=== PATIENT | male | born 1965 | race Hispanic/Latino ===

== ENCOUNTER 2017-10-14 01:57 | Inpatient (IN) | payer SELFPAY ==
[2017-10-14] MEDS ORDERED: Norepinephrine 8 MG/0.9% NS 250 ML ONE (02:03)
[2017-10-14 02:28] LABS: CO2 Tension 41.3 mmHg (35.0-45.0); O2 Tension (PaO2) 155.6 mmHg (80.0-100.0); pH, Arterial 6.96 (7.35-7.45)
[2017-10-14 02:29] LABS: Actual Bicarbonate (HCO3a) 9.1 mEq/L (22-28); Base Excess (BEa) -21.2 mEq/L (-2.0 to +3.0); Hematocrit-ABG 17.4 % (42.0-52.0); Hemoglobin (Hb) 7.1 g/dL (14.0-18.0)
[2017-10-14 02:30] LABS: ALV-art Gradient 149.275 (0-20); Analyzer IN Cardio ER; Calcium, Ionized 0.8 mmol/L (1.12-1.30); Puncture Site RRA
[2017-10-14] MEDS ORDERED: Pantoprazole 40 MG VIAL ONE (02:35)
[2017-10-14 02:45] LABS: Hemoglobin 7.5 g/dL (14.0-18.0); Mean Corpuscular Hemoglobin 33.1 pg (27.0-31.0); Mean Platelet Volume 10.3 fL (7.4-10.4); Platelet Count 15 thou/uL (130-400); RBC Distribution Width 16.8 % (11.5-14.5); Red Blood Cell (RBC) Count 2.27 mill/uL (4.70-6.10); Reflex for Review?? NO; White Blood Cell (WBC) Count 3.8 thou/uL (4.8-10.8)
[2017-10-14] MEDS ORDERED: Octreotide Acetate 1,250 MCG in Sodium Chloride 0.9% 250 ML 250 ML IVPB SCH (02:45)
[2017-10-14 02:46] LABS: Prothrombin Time 54.4 SEC (12.0-14.7)
[2017-10-14 02:47] LABS: PTT 106.9 SEC (22.9-36.1)
[2017-10-14 02:53] LABS: ALT (SGPT) 232 U/L (8-55); AST (SGOT) 763 U/L (5-34); Albumin 1.3 g/dL (3.5-5.0); Alkaline Phosphatase 59 U/L (40-150); BUN (Urea Nitrogen) 31 mg/dL (8.4-25.7); Bilirubin, Total 2.8 mg/dL (0.2-1.2); Calc. Creatinine Clearance 0 mL/min (70-130); Chloride 110 mmol/L (98-107); Estimated GFR-MDRD 27; Globulin 1.2 g/dL (2.4-3.5); Glucose 66 mg/dL (70-105); Potassium 4.5 mmol/L (3.5-5.1); Protein, Total 2.5 g/dL (6.0-8.3); Sodium 154 mmol/L (136-145)
[2017-10-14 02:59] LABS: INR-International Normal Ratio 5.7
[2017-10-14] MEDS ORDERED: Phytonadione 10 MG/ML AMP SLOW IVP SCH (03:00)
[2017-10-14] MEDS ORDERED: Human Prothrombin Complx(PCC) 1,000 UNIT in Admixture Fee 1 EACH IV SCH (03:00)
[2017-10-14 03:06] LABS: Actual Bicarbonate (HCO3a) 11.1 mEq/L (22-28); CO2 Tension 39.9 mmHg (35.0-45.0); O2 Tension (PaO2) 131.1 mmHg (80.0-100.0); pH, Arterial 7.06 (7.35-7.45)
[2017-10-14 03:07] LABS: Base Excess (BEa) -17.8 mEq/L (-2.0 to +3.0); Calcium, Ionized 0.5 mmol/L (1.12-1.30); Hemoglobin (Hb) 6.6 g/dL (14.0-18.0)
[2017-10-14 03:08] LABS: ALV-art Gradient 175.525 (0-20); Analyzer IN Cardio ER; Puncture Site RRA
[2017-10-14] MEDS ORDERED: EPINEPHrine 1 MG/10 ML Abboject SYRINGE ONE (03:12)
[2017-10-14 03:20] LABS: Band 6 % (5-11); Lymphocytes 32 % (21-51); MDiff Complete? YES; Macrocytosis MODERATE=16-30 cells (100X) (0-5/hpf); Monocytes 1 % (0-10); Neutrophil 61 % (42-75); PLT Morphology Comment Appears Decreased
[2017-10-14 03:21] LABS: CKMB 7.6 ng/mL (0-6.6); Carbon Dioxide Less than 8 mmol/L (22-29); Troponin I 0.343 ng/mL (< 0.028)
[2017-10-14] MEDS ORDERED: Tranexamic Acid 1,000 MG in Sodium Chloride 0.9% 250 ML 250 ML IVPB SCH (03:30)
[2017-10-14] MEDS ORDERED: Vecuronium 10 MG VIAL IVP PRN (03:44)
[2017-10-14] MEDS ORDERED: Sodium Bicarbonate 70 MEQ in Sodium Chloride 0.45% 1,000 ML IV ONE ×2 (03:45→16:45)
[2017-10-14] MEDS ORDERED: Norepinephrine 8 MG/0.9% NS 250 ML IVPB SCH (03:45)
[2017-10-14] MEDS ORDERED: Sodium Bicarbonate 2.5 MEQ/5 ML VIAL ONE (03:48)
[2017-10-14] MEDS ORDERED: Sodium Bicarb 50 MEQ/50 ML Abboject 8.4% SYRINGE ONE ×3 (03:48→14:48)
[2017-10-14] MEDS ORDERED: Calcium Chloride 1 GM/10 ML Abboject SYRINGE ONE ×2 (03:54→14:48)
[2017-10-14 04:32] LABS: Troponin I 0.292 ng/mL (< 0.028)
[2017-10-14 04:44] LABS: Base Excess (BEa) -11.8 mEq/L (-2.0 to +3.0); CO2 Tension 54.6 mmHg (35.0-45.0); Hemoglobin (Hb) 7.8 g/dL (14.0-18.0); O2 Tension (PaO2) 137.3 mmHg (80.0-100.0); pH, Arterial 7.11 (7.35-7.45)
[2017-10-14 04:45] LABS: Analyzer IN Cardio ER; Calcium, Ionized 0.9 mmol/L (1.12-1.30); Puncture Site ALINE
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
[2017-10-14 06:02] LABS: INR-International Normal Ratio 1.6; Prothrombin Time 19.3 SEC (12.0-14.7)
[2017-10-14 06:13] LABS: ALT (SGPT) 679 U/L (8-55); AST (SGOT) 2297 U/L (5-34); Albumin 3.4 g/dL (3.5-5.0); Alkaline Phosphatase 80 U/L (40-150); Anion Gap 48 mmol/L (10-20); BUN (Urea Nitrogen) 29 mg/dL (8.4-25.7); Bilirubin, Total 3.7 mg/dL (0.2-1.2); Calc. Creatinine Clearance 0 mL/min (70-130); Calcium 9.8 mg/dL (7.8-10.44); Carbon Dioxide 11 mmol/L (22-29); Chloride 102 mmol/L (98-107); Estimated GFR-MDRD 29; Globulin 2.7 g/dL (2.4-3.5); Glucose 105 mg/dL (70-105); Potassium 4.8 mmol/L (3.5-5.1); Protein, Total 6.1 g/dL (6.0-8.3); Sodium 156 mmol/L (136-145)
[2017-10-14 06:14] LABS: CO2 Tension 45.7 mmHg (35.0-45.0); O2 Tension (PaO2) 83.7 mmHg (80.0-100.0)
[2017-10-14 06:15] LABS: Actual Bicarbonate (HCO3a) 13.9 mEq/L (22-28); Base Excess (BEa) -15.1 mEq/L (-2.0 to +3.0); Hematocrit-ABG 31.1 % (42.0-52.0); Hemoglobin (Hb) 11.4 g/dL (14.0-18.0)
[2017-10-14 06:15] LABS: Band 4 % (5-11); Hemoglobin 11.4 g/dL (14.0-18.0); Lymphocytes 74 % (21-51); MDiff Complete? YES; Mean Corpuscular HGB CONC 33.7 g/dL (32.0-36.0); Mean Corpuscular Hemoglobin 31.7 pg (27.0-31.0); Mean Corpuscular Volume 94.1 fl (80.0-94.0); Mean Platelet Volume 7.4 fL (7.4-10.4); Neutrophil 22 % (42-75); Nucleated RBC 2 % (0); PLT Morphology Comment Appears Decreased; Platelet Count 91 thou/uL (130-400); RBC Distribution Width 14.9 % (11.5-14.5); Red Blood Cell (RBC) Count 3.59 mill/uL (4.70-6.10); White Blood Cell (WBC) Count 1.1 thou/uL (4.8-10.8)
[2017-10-14 06:16] LABS: ALV-art Gradient 572.175 (0-20); Analyzer IN Cardio ER; Calcium, Ionized 0.7 mmol/L (1.12-1.30); Puncture Site ART LINE
[2017-10-14 06:17] LABS: CKMB 81.8 ng/mL (0-6.6); Troponin I 0.598 ng/mL (< 0.028)
[2017-10-14 06:19] LABS: Bilirubin Negative (Negative); Blood, Urine Large (Negative); Clarity CLOUDY (Clear); Glucose, Urine (Dipstick) Negative (Negative); Leukocyte Negative (Negative); Nitrite Negative (Negative); Protein, Urine (Dipstick) 300 mg/dL (Neg-Trace); Specific Gravity, Urine 1.014 (1.002-1.036); Urobilinogen 0.2 mg/dL (0.2-1.0); pH, Urine 6.5 (5.0-9.0)
[2017-10-14 06:22] LABS: Bacteria/HPF Rare-Few HPF (None Seen); RBC/HPF 21-50 HPF (0-3)
[2017-10-14 06:23] LABS: Pathc Cast-AUWi Flag 3.19 (0-2.49)
[2017-10-14] MEDS: Pantoprazole 80 MG, Admixture Fee 1 EACH in Sodium Chloride 0.9% 100 ML IVP SCH ×3 (06:30→20:05)
[2017-10-14 06:34] LABS: Hyaline Casts/LPF 0-3 HYALINE CAST LPF (0-3 Hyaline); Other Casts/LPF None Seen LPF (0-3 Hyaline); Oval Fat Bodies/HPF None Seen HPF (None Seen); Sperm/HPF None Seen HPF (None Seen); Transitional Epithelial NONE SEEN HPF (0-3); Trichomonas/HPF None Seen HPF (None Seen); Yeast-All Forms None Seen HPF (None Seen)
[2017-10-14] MEDS: Vasopressin 40 UNIT, Admixture Fee 1 EACH in Sodium Chloride 0.9% 100 ML IV PRN ×3 (07:00→17:07)
[2017-10-14] MEDS ORDERED: CCU Electrolyte Replacement 1 EACH IVPB ONE (07:18)
[2017-10-14] MEDS ORDERED: Ventilator Sedation Protocol 1 EACH FS SCH (07:18)
[2017-10-14] MEDS ORDERED: Lorazepam 2 MG/ML VIAL SLOW IVP PRN (07:34)
[2017-10-14] MEDS ORDERED: DISCONTINUE PREVIOUS NARCOTIC PAIN MEDICATIONS AND BENZODIAZEPINES FS SCH (07:34)
[2017-10-14] MEDS ORDERED: Morphine 4 MG/ML VIAL SLOW IVP PRN (07:34)
[2017-10-14] MEDS ORDERED: Propofol 1,000 MG/100 ML VIAL IV PRN (07:34)
[2017-10-14] MEDS ORDERED: Propofol BOLUS 1,000 MG/100 ML VIAL IV PRN (07:34)
[2017-10-14] MEDS ORDERED: fentaNYL Citrate/PF 2,000 MCG in Sodium Chloride 0.9% 60 ML IV SCH (07:34)
[2017-10-14] MEDS ORDERED: Fentanyl BOLUS 250 ML IVPB PRN (07:34)
[2017-10-14] MEDS ORDERED: Potassium Phosphate 15 MMOL in Sodium Chloride 0.9% 250 ML 250 ML IV PRN (07:35)
[2017-10-14] MEDS ORDERED: Magnesium 2 GM/NS 0.9% 100 ML 2 GM in Premix Bag 1 BAG IVPB PRN (07:35)
[2017-10-14] MEDS ORDERED: Potassium Chloride 40 MEQ in Sodium Chloride 0.9% 250 ML 250 ML IVPB PRN (07:35)
[2017-10-14] MEDS ORDERED: Potassium Phosphate 12 MMOL in Sodium Chloride 0.9% 250 ML 250 ML IV PRN (07:35)
[2017-10-14] MEDS ORDERED: Magnesium Oxide 400 MG TAB PO PRN ×2 (07:35)
[2017-10-14] MEDS ORDERED: Potassium Phosphate 9 MMOL in Sodium Chloride 0.9% 100 ML IVPB PRN (07:35)
[2017-10-14] MEDS ORDERED: CCU ELECTROLYTE REPLACEMENT PROTOCOL FS PRN (07:35)
[2017-10-14] MEDS ORDERED: Potassium Chloride 20 MEQ TAB PO PRN (07:35)
[2017-10-14] MEDS ORDERED: Potassium Chloride 40 MEQ in Premix Bag 1 BAG IVPB PRN (07:35)
--- NOTE | 2017-10-14 07:39 | CON ---
DATE OF CONSULTATION: 10/14/2017. REQUESTING PHYSICIAN: Dr. Sahu. REASON FOR CONSULTATION: Upper GI bleeding with hemorrhagic shock. HISTORY OF PRESENT ILLNESS: Mr. Anderson Skelton is a 52-year-old man with an unknown past medical history who was transferred to our emergency department in hemorrhagic shock. History is very limited. Evidently, he was brought to the ER by friends after starting to vomit a copious amount of bright red blood tonight. Upon arrival, he is in profound shock with hypotension, coagulopathy, encephalopathy, evidently found to have elevated cardiac enzymes prior to transfer as well. He has an orogastric tube, which is putting out copious amounts of bright red blood. It is unclear whether he had any symptoms preceding this event. It is unclear whether he has any prior history of gastrointestinal or liver illness. It is unknown what medications he may have been on as an outpatient. He has received multiple blood products already. He has evidently received 3 units of platelets and 6 units of packed RBCs as well as FFP. A central line has just been placed. He is now on 2 pressors. He is still in the trauma bay of the emergency department and the plans are to move him to the Intensive Care Unit. REVIEW OF SYSTEMS: Unable to obtain due to the patient's mental status. PAST MEDICAL HISTORY: Unknown. ALLERGIES: Unknown. OUTPATIENT MEDICATIONS: Unknown. FAMILY HISTORY: Unable to obtain. SOCIAL HISTORY: Unable to obtain. PHYSICAL EXAMINATION: VITAL SIGNS: Blood pressure 95/35, pulse 173, 97% oxygen saturation on ventilator. GENERAL: Critically ill 52-year-old man, endotracheally intubated. SKIN: No jaundice, no rash visible or palpable. EYES: No scleral icterus. ENT: The patient is endotracheally intubated. He has an orogastric tube putting out a large amount of bright red blood. HEART: Irregular, tachycardia. LUNGS: Bibasilar crackles and vent sounds. ABDOMEN: Nondistended. Bowel sounds are hypoactive. The patient does not withdraw to palpation, pain stimulus. EXTREMITIES: No peripheral edema. LABORATORY STUDIES: WBC 3.8, hemoglobin 7.5, platelets 15. Sodium 154, potassium 4.5, carbon dioxide less than 8, BUN 31, creatinine 2.49, glucose 66, calcium 6.0. Total bilirubin 2.8, alkaline phosphatase 59, AST 763, ALT 232, troponin 0.343, albumin 1.3. INR 5.7. Arterial pH 7.06, up from 6.96 on initial presentation, pO2 131, pCO2 39.9. ABG hemoglobin which is actually the most recent hemoglobin was down to 6.6. ASSESSMENT AND PLAN: 1. Upper gastrointestinal bleeding. 2. Hemorrhagic shock, severe. 3. Coagulopathy. 4. Elevated liver function tests, possibly secondary to shock liver. The patient is critically ill. Prognosis seems quite grim. He is being resuscitated maximally at this time, continues to be hypotensive. He is receiving more blood products. I have recommended IV PPI as well as octreotide. The patient is clinically unstable, but on the other hand, active hemorrhage continues and urgent endoscopic investigation is warranted despite the risks of the procedure. We will proceed with urgent upper endoscopy at this time. Further recommendations following EGD. MTDD
--- NOTE | 2017-10-14 07:59 | OP ---
DATE OF PROCEDURE: 10/14/2017 SURGEON: Lauri Mclean M.D. BUTTON [employer]ATION WORKER SURGEON: None. PROCEDURE PERFORMED: Esophagogastroduodenoscopy with control of hemorrhage. INDICATION: Upper gastrointestinal bleeding and hemorrhagic shock. MEDICATIONS: See ER record. FINDINGS: After consultation with Dr. Sahu as well as Dr. Butler, given the emergent nature of the situation and the absence of any family members with the patient, it was agreed to perform the endoscopic procedure emergently. We were unable to obtain informed consent, but we all agreed on the necessity of the emergent procedure. Pre-endoscopic cardiopulmonary examination was performed. The procedure was performed in the trauma bay of the emergency department. DESCRIPTION OF PROCEDURE: Timeout was performed before the procedure started. A bite block was put into place. The patient's nasogastric tube was removed. A Pentax adult therapeutic upper endoscope was placed into the oropharynx and advanced into the esophagus under direct visualization. There was a large amount of bright red fresh blood, filling the esophagus and the gastric fundus and coating much of the gastric mucosa as well as the examined portions of the duodenum. On careful examination of the esophagus, the patient has a couple of trunks of very large esophageal varices; however, there does not appear to be any bleeding from the esophageal varices, there are no stigmata of recent bleeding from the esophageal varices. The endoscope was advanced into the stomach. Forward and retroflexed views were obtained. Due to the large amount of fresh blood and clots within the gastric fundus, I was unable to completely clear the gastric fundus. The gastric antrum and body appeared normal. The endoscope was passed through the pylorus and into the first and second portions of the duodenum and aside from fresh blood throughout the lumen, the mucosa in this area appeared normal. I then turned my attention to a careful exam of the GE junction area. On retroflexed view of the GE junction area, I was unable to see any gastric varices, though again note, I was unable to completely clear the gastric fundus. However, I was able to get a good examination of the GE junction area. The patient appears to have a large ulcer at the GE junction. This does not have a typical appearance of Bina-Juares tear, but rather of a gastric ulcer. There is active hemorrhage from two separate visible vessels within this ulcer base. One of those visible vessels was bleeding quite briskly. It was decided to proceed with cautery of this area. I used a 10- [place] Islander bipolar probe to cauterize the ulcer bed and extensive amount of cautery had to be applied in order to achieve hemostasis. Additionally, I did inject 3 mL of submucosal epinephrine around the ulcer bed. With epinephrine injection and cautery of the ulcer base, hemostasis was finally achieved. At this point, the upper endoscope was completely withdrawn and the patient allowed to recover. The patient tolerated the procedure well. There were no immediate post-procedure complications. He is being transferred to an ICU bed. IMPRESSION: 1. Gastric ulcer near the gastroesophageal junction, with active hemorrhage from visible vessel, now status post successful hemostasis with 10-Sol[place] Islander bipolar cautery and submucosal epinephrine injection. 2. Large distal esophageal varices, but with no stigmata of hemorrhage. No therapy was applied to the varices on this examination. 3. Large amount of fresh blood and clots filling the gastric fundus, unable to clear the gastric fundus completely for examination. 4. Otherwise, normal esophagogastroduodenoscopy. RECOMMENDATIONS: 1. Continue maximal supportive care as you are doing. Recommend correction of his coagulopathy and thrombocytopenia. 2. Monitor H&H, transfuse as needed. 3. Protonix IV drip needs to be continued. 4. The patient's prognosis remains grim. GI will continue to follow. ELIZA
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
[2017-10-14 08:37] LABS: Actual Bicarbonate (HCO3a) 13.8 mEq/L (22-28); CO2 Tension 34.3 mmHg (35.0-45.0); O2 Tension (PaO2) 43.2 mmHg (80.0-100.0); pH, Arterial 7.22 (7.35-7.45)
[2017-10-14 08:38] LABS: Base Excess (BEa) -12.8 mEq/L (-2.0 to +3.0); Calcium, Ionized 0.8 mmol/L (1.12-1.30); Puncture Site ALINE
[2017-10-14 08:39] LABS: ALV-art Gradient 621.925 (0-20)
[2017-10-14] MEDS ORDERED: Norepinephrine 16 MG in Dextrose 5% in Water 234 ML IVPB PRN (09:10)
[2017-10-14] MEDS ORDERED: Albumin 25% 25 GM/100 ML BOT IVPB STA (09:26)
--- NOTE | 2017-10-14 09:50 | PRG ---
DATE OF SERVICE: 10/14/2017 Additional one-hour critical care time. SUBJECTIVE: The patient has continued to do poorly. He is requiring vasopressin and Levophed. Now, he is experiencing refractory hypoxemia. LABORATORY DATA: The latest blood gas from about 30 minutes ago shows a pH of 7.22, pCO2 of 34, pO2 of 43, and his O2 sat is about 88% on the monitor. White blood cell count is 1.1, hematocrit 33.8, p latelet count 91. Last INR is 1.6. Sodium 156, potassium 4.8, chloride 102, CO2 of 11, BUN 29, crea tinine 2.3, glucose 105, AST 2297, ALT 679. ASSESSMENT: 1. Multiple organ failure including respiratory failure and renal failure. 2. Hemorrhagic shock from gastrointestinal bleeding - he had a visible vessel at the gastroenterolog y junction that Dr. Mclean was able to inject and cauterize. 3. Hypotension. PLAN: 1. Check x-ray. 2. Continue vasopressors. 3. Continue bicarbonate and IV fluids. 4. Continue serial ABGs. 5. I have adjusted his ventilator settings to bilevel.
[2017-10-14 09:51] LABS: Mean Corpuscular HGB CONC 34.1 g/dL (32.0-36.0); Mean Corpuscular Hemoglobin 31.3 pg (27.0-31.0); Mean Corpuscular Volume 91.6 fl (80.0-94.0); Mean Platelet Volume 7.2 fL (7.4-10.4); Platelet Count 76 thou/uL (130-400); RBC Distribution Width 14.7 % (11.5-14.5); Red Blood Cell (RBC) Count 3.85 mill/uL (4.70-6.10); White Blood Cell (WBC) Count 0.6 thou/uL (4.8-10.8)
--- NOTE | 2017-10-14 09:56 | RAD ---
CHEST 1 VIEW: Date: 10/14/17 HISTORY: Altered mental status, symptomatic bradycardia and arrest, with CPR performed. COMPARISON: Earlier exam of the same day. FINDINGS: Endotracheal and NG tubes are in satisfactory position. Heart size appears slightly enlarged, but thi s may be related to supine technique. No rib fractures are identified. Pad overlies the right chest a nd obscures detail. IMPRESSION: 1. Endotracheal and NG tubes in satisfactory position. 2. Subsegmental atelectatic change in the lung bases. POS: [facility]
[2017-10-14 10:00] LABS: ALT (SGPT) 1194 U/L (8-55); Albumin 3.1 g/dL (3.5-5.0); Alkaline Phosphatase 77 U/L (40-150); Anion Gap 41 mmol/L (10-20); BUN (Urea Nitrogen) 29 mg/dL (8.4-25.7); Calc. Creatinine Clearance 41 mL/min (70-130); Calcium 8.6 mg/dL (7.8-10.44); Carbon Dioxide 14 mmol/L (22-29); Chloride 104 mmol/L (98-107); Estimated GFR-MDRD 27; Globulin 2.2 g/dL (2.4-3.5); Potassium 4.3 mmol/L (3.5-5.1); Protein, Total 5.3 g/dL (6.0-8.3); Sodium 155 mmol/L (136-145)
[2017-10-14 10:11] LABS: AST (SGOT) Greater than 3500 U/L (5-34); Glucose 35 mg/dL (70-105)
[2017-10-14] MEDS ORDERED: Dextrose 50% Abboject 50 ML SYRINGE ONE (10:11)
[2017-10-14] MEDS ORDERED: Hydrocortisone Sod Succ/PF 100 mg/2 ml Vial IVP STA (10:12)
[2017-10-14 10:17] LABS: CO2 Tension 35.8 mmHg (35.0-45.0); O2 Tension (PaO2) 41.3 mmHg (80.0-100.0); pH, Arterial 7.25 (7.35-7.45)
[2017-10-14 10:18] LABS: Actual Bicarbonate (HCO3a) 15.2 mEq/L (22-28); Base Excess (BEa) -11.1 mEq/L (-2.0 to +3.0)
[2017-10-14 10:19] LABS: Hemoglobin (Hb) 12.4 g/dL (14.0-18.0)
[2017-10-14 10:20] LABS: Calcium, Ionized 0.9 mmol/L (1.12-1.30); Puncture Site LINE
[2017-10-14] MEDS: cefTRIAXone\\ROCEPHIN 2 GM in Sodium Chloride 0.9% 100 ML IVPB SCH (10:21)
[2017-10-14] MEDS ORDERED: Dextrose 50% Abboject 50 ML SYRINGE IVP PRN (10:24)
[2017-10-14] MEDS ORDERED: Dextrose 5% in Water 1,000 ML IV PRN (10:24)
[2017-10-14 10:25] LABS: Band 8 % (5-11); Lymphocytes 78 % (21-51); MDiff Complete? YES; Monocytes 2 % (0-10); Myelocyte 1 % (0-0); Neutrophil 8 % (42-75); Nucleated RBC 1 % (0); Promyelocytes 1 % (0-0); Reflex for Review?? YES
[2017-10-14] MEDS: Dextrose 10% in Water 1,000 ML IV SCH (10:26)
--- NOTE | 2017-10-14 10:38 | RAD ---
PORTABLE CHEST: Date: 10/14/17 HISTORY: Hypoxemia. COMPARISON: Earlier exam from same date. FINDINGS: There is a definite progression in the interstitial alveolar lung change compatible with pulmonary ed jose. Endotracheal tube remains in satisfactory position. NG tube has been removed. IMPRESSION: Development of moderate pulmonary edema-type change. POS: [facility]
[2017-10-14] MEDS: Norepinephrine 16 MG in Sodium Chloride 0.9% 250 ML 234 ML IVPB PRN ×3 (12:19→19:52)
[2017-10-14] MEDS: Levothyroxine 100 MCG SDV IVP SCH (13:16)
[2017-10-14] MEDS: Hydrocortisone Sod Succ/PF 100 mg/2 ml Vial IVP SCH ×2 (13:16→17:05)
[2017-10-14 13:48] LABS: Hemoglobin 11.2 g/dL (14.0-18.0); Mean Corpuscular HGB CONC 35.6 g/dL (32.0-36.0); Mean Corpuscular Hemoglobin 32.4 pg (27.0-31.0); Mean Platelet Volume 7.2 fL (7.4-10.4); Platelet Count 51 thou/uL (130-400); RBC Distribution Width 14.8 % (11.5-14.5); Red Blood Cell (RBC) Count 3.45 mill/uL (4.70-6.10); White Blood Cell (WBC) Count 0.4 thou/uL (4.8-10.8)
[2017-10-14] MEDS ORDERED: Prevnar 13-Val Conj/PF 0.5 ML SYRINGE IM ONE (14:15)
[2017-10-14] MEDS ORDERED: Lacri-Lube Opth Oint 3.5 GM TUBE EA EYE PRN (16:40)
--- NOTE | 2017-10-14 16:55 | PRG ---
DATE OF SERVICE: 10/14/2017 The patient continued to steadily worsened during the day. There is an uncle whom the resident's hav e communicated with. There is no other thing that we can communicate with. This case has become fut ile in terms of the patient's response to vasopressors and continued hypoxic respiratory failure desp ite adequate ventilation. Latest labs demonstrated white blood cell count 0.4, hematocrit 31.4, and platelet count of 51. Latest blood gas pH 7.25, pCO2 of 38, pO2 41. Due to the futility and lack of response to therapy, I do not think that the patient should be subjec bryan to CPR. I discussed this with the residents and we decided to issue to attending DNR since no fa ann is here to help us with decision making process. We will continue current therapy for the time being, but I would suspect that his heart will probably succumb within the next several hours.
[2017-10-14] MEDS ORDERED: Refresh Lacri-lube Opth Oint 7 GM TUBE EA EYE PRN (17:00)
[2017-10-14 17:44] LABS: Hemoglobin 10.8 g/dL (14.0-18.0); Mean Corpuscular HGB CONC 34.6 g/dL (32.0-36.0); Mean Corpuscular Volume 92.5 fl (80.0-94.0); Mean Platelet Volume 7.9 fL (7.4-10.4); Platelet Count 44 thou/uL (130-400); RBC Distribution Width 15.4 % (11.5-14.5); Red Blood Cell (RBC) Count 3.38 mill/uL (4.70-6.10); White Blood Cell (WBC) Count 0.5 thou/uL (4.8-10.8)
[2017-10-14 21:23] LABS: Hemoglobin 10.6 g/dL (14.0-18.0); Mean Corpuscular HGB CONC 33.1 g/dL (32.0-36.0); Mean Corpuscular Hemoglobin 31.4 pg (27.0-31.0); Mean Corpuscular Volume 94.9 fl (80.0-94.0); Mean Platelet Volume 8.6 fL (7.4-10.4); Platelet Count 41 thou/uL (130-400); RBC Distribution Width 16.1 % (11.5-14.5); Red Blood Cell (RBC) Count 3.39 mill/uL (4.70-6.10); White Blood Cell (WBC) Count 0.6 thou/uL (4.8-10.8)
[2017-10-14 21:27] LABS: MDiff Complete? YES
[2017-10-14 21:28] LABS: Lymphocytes 60 % (21-51); Monocytes 4 % (0-10); Neutrophil 36 % (42-75); Nucleated RBC 7 % (0); PLT Morphology Comment Appears Decreased
[2017-10-15] MEDS: Hydrocortisone Sod Succ/PF 100 mg/2 ml Vial IVP SCH ×3 (00:18→13:28)
[2017-10-15] MEDS: Dextrose 10% in Water 1,000 ML IV SCH ×2 (00:18→11:33)
[2017-10-15 02:06] LABS: Band 29 % (5-11); Hemoglobin 10.2 g/dL (14.0-18.0); Lymphocytes 50 % (21-51); MDiff Complete? YES; Mean Corpuscular HGB CONC 33.6 g/dL (32.0-36.0); Mean Corpuscular Hemoglobin 31.7 pg (27.0-31.0); Mean Corpuscular Volume 94.3 fl (80.0-94.0); Metamyelocyte 2 % (0-0); Monocytes 2 % (0-10); Neutrophil 17 % (42-75); Nucleated RBC 16 % (0); PLT Morphology Comment Appears Decreased; Platelet Count 38 thou/uL (130-400); Polychromasia SLIGHT = 2-3 cells (100X) (0-2/hpf); Red Blood Cell (RBC) Count 3.22 mill/uL (4.70-6.10); White Blood Cell (WBC) Count 1.3 thou/uL (4.8-10.8)
[2017-10-15] MEDS: Norepinephrine 16 MG in Sodium Chloride 0.9% 250 ML 234 ML IVPB PRN ×3 (02:34→11:34)
[2017-10-15] MEDS: Pantoprazole 80 MG, Admixture Fee 1 EACH in Sodium Chloride 0.9% 100 ML IVP SCH ×2 (02:39→05:00)
[2017-10-15] MEDS ORDERED: Sodium Bicarbonate 70 MEQ in Sodium Chloride 0.45% 1,000 ML IV SCH (05:15)
[2017-10-15 05:44] LABS: ALT (SGPT) 1658 U/L (8-55); Albumin 2.7 g/dL (3.5-5.0); Alkaline Phosphatase 87 U/L (40-150); BUN (Urea Nitrogen) 27 mg/dL (8.4-25.7); Bilirubin, Total 5.8 mg/dL (0.2-1.2); Calc. Creatinine Clearance 24 mL/min (70-130); Calcium 7.1 mg/dL (7.8-10.44); Carbon Dioxide Less than 8 mmol/L (22-29); Chloride 102 mmol/L (98-107); Estimated GFR-MDRD 14; Globulin 1.6 g/dL (2.4-3.5); Glucose 69 mg/dL (70-105); Potassium 4.7 mmol/L (3.5-5.1); Protein, Total 4.3 g/dL (6.0-8.3); Sodium 150 mmol/L (136-145)
[2017-10-15 05:46] LABS: Band 42 % (5-11); Eosinophils 2 % (0-10); Hemoglobin 10.2 g/dL (14.0-18.0); Lymphocytes 28 % (21-51); MDiff Complete? YES; Mean Corpuscular HGB CONC 33.4 g/dL (32.0-36.0); Mean Corpuscular Hemoglobin 31.4 pg (27.0-31.0); Mean Platelet Volume 9.1 fL (7.4-10.4); Metamyelocyte 16 % (0-0); Myelocyte 2 % (0-0); Neutrophil 10 % (42-75); Nucleated RBC 7 % (0); PLT Morphology Comment Appears Decreased; Platelet Count 38 thou/uL (130-400); RBC Distribution Width 16.2 % (11.5-14.5); Red Blood Cell (RBC) Count 3.25 mill/uL (4.70-6.10); White Blood Cell (WBC) Count 2.5 thou/uL (4.8-10.8)
[2017-10-15 06:24] LABS: Band 32 % (5-11); Hemoglobin 10.3 g/dL (14.0-18.0); Lymphocytes 51 % (21-51); MDiff Complete? YES; Mean Corpuscular Volume 94.1 fl (80.0-94.0); Mean Platelet Volume 8.6 fL (7.4-10.4); Metamyelocyte 11 % (0-0); Monocytes 2 % (0-10); Neutrophil 4 % (42-75); Nucleated RBC 35 % (0); PLT Morphology Comment Appears Decreased; Platelet Count 40 thou/uL (130-400); RBC Distribution Width 16.1 % (11.5-14.5); Red Blood Cell (RBC) Count 3.22 mill/uL (4.70-6.10); White Blood Cell (WBC) Count 1.4 thou/uL (4.8-10.8)
[2017-10-15 06:59] LABS: Actual Bicarbonate (HCO3a) 7.6 mEq/L (22-28); Base Excess (BEa) -22.2 mEq/L (-2.0 to +3.0); CO2 Tension 30.4 mmHg (35.0-45.0); O2 Tension (PaO2) 60.6 mmHg (80.0-100.0); pH, Arterial 7.01 (7.35-7.45)
[2017-10-15 07:00] LABS: Calcium, Ionized 0.8 mmol/L (1.12-1.30); Hemoglobin (Hb) 10.4 g/dL (14.0-18.0); Puncture Site ALINE
[2017-10-15 07:12] VITALS: TEMP 99.1
[2017-10-15 07:14] LABS: AST (SGOT) Greater than 3500 U/L (5-34)
--- NOTE | 2017-10-15 07:18 | PDOC.FM ---
- Subjective Subjective: Patient has shown no improvement from yesterday, non-responsive to pain, not producing urine. I called and spoke with patient's uncle yesterday and briefly discussed the situation. Uncle was on his way to [place] from [place] and requested we talk more at that time. Also informed that patient's lives and [place] and Pt has been living in [facility] for about 20 years and is chronic heavy drinker. Hospital staff spoke to pt's yesterday, she requested we provide a letter to the consulate explaining the situation so she can come to be with patient. In that conversation, it was explained that the situation was dire and he would likely not survive to that point. Also yesterday, Dr. Sahu and Dr. Butler signed a 2 physician DNR and placed this in the physical chart. No urine output overnight. - Objective MAR Reviewed: Yes Vital Signs & Weight: Vital Signs (12 hours) Temp Pulse Resp BP Pulse Ox 10/15/17 07:00 99.1 F 10/15/17 06:00 28 H 10/15/17 04:00 28 H 10/15/17 03:49 110 H 121/50 L 10/15/17 02:00 28 H 10/15/17 00:56 109 H 127/48 L 10/15/17 00:00 28 H 10/14/17 22:30 112 H 108/54 L 10/14/17 22:00 28 H 10/14/17 20:00 99.3 F 110 H 28 H 43 L Weight Weight 89.902 kg Most Recent Monitor Data Heart Rate from ECG 109 NIBP 119/39 NIBP BP-Mean 62 Respiration from ECG 28 SpO2 71 I&O: 10/14/17 10/15/17 10/16/17 06:59 06:59 06:59 Intake Total 6411 0 Output Total 160 0 Balance 6251 0 Result Diagrams: 10/15/17 05:00 10/15/17 04:38 <Naseem Page - Last Filed: 10/15/17 07:12> - Objective Vital Signs & Weight: Vital Signs (12 hours) Temp Pulse Resp BP Pulse Ox 10/15/17 13:37 73 98/31 L 10/15/17 12:00 28 H 10/15/17 10:18 106 H 122/40 L 10/15/17 10:00 28 H 10/15/17 08:00 99.1 F 109 H 28 H 90 L 10/15/17 07:21 109 H 142/40 H 85 L 10/15/17 07:00 99.1 F 10/15/17 06:00 28 H 10/15/17 04:00 28 H 10/15/17 03:49 110 H 121/50 L Weight Admit Weight 89.811 kg Weight 89.902 kg Most Recent Monitor Data Heart Rate from ECG 75 NIBP 94/32 NIBP BP-Mean 52 Respiration from ECG 28 SpO2 84 I&O: 10/14/17 10/15/17 10/16/17 06:59 06:59 06:59 Intake Total 6411 0 Output Total 160 0 Balance 6251 0 Result Diagrams: 10/15/17 05:00 10/15/17 04:38 <Matthew Bonner - Last Filed: 10/15/17 16:07> Phys Exam - Physical Examination non-responsive pupils fixed b/l; intubated; sclera icteric expiratory wheezing b/l worse on right and in upper lung gonzalez tachycardic absent BS distal lower extremities cool no corneal or gag reflex; GCS 3 <Naseem Page - Last Filed: 10/15/17 07:12> Dx/Plan (1) Multisystem organ failure Code(s): [id number] - Status: Acute (2) Hemorrhagic shock Code(s): R57.8 - OTHER SHOCK Status: Acute (3) Hepatic failure Status: Acute (4) Renal failure, acute Status: Acute (5) Respiratory failure Code(s): J96.90 - RESPIRATORY FAILURE, UNSP, UNSP W HYPOXIA OR HYPERCAPNIA Status: Acute (6) STEMI (ST elevation myocardial infarction) Status: Acute - Plan Plan: 1. Multisystem organ failure w/ hemorrhagic shock Patient is now DNR. Will attempt to have conversation with this morning explaining the situation. continue with other current measures including vasopressin, levophed, epinephrine to maintain MAP >65. Continue with q6hr CBC to monitor for bleeding, Hg 10 this morning. 2. Respiratory failure Continue with ventilatory support at this time, patient having trouble maintaining O2 saturation >90%. 3. Renal failure continue with fluid regimen, patient is plus 6 liters over the last 24hrs and has produced 160ml urine with trace to none over the last 12 hrs. <Naseem Page - Last Filed: 10/15/17 07:12> Attending Addendum - Attending Addendum Date/Time: 10/15/17 4111 I personally evaluated the patient and discussed the management with Dr. Page I agree with the History, Examination, Assessment and Plan documented above with any addition or exceptions noted below.Patient s/p massive UGI bleed with successful resuscitation. Patient with multiple organ failure grave group home prognosis for survival. Patient family and Uncle have been kept informed of poor prognosis. Exam notable intubated with full ventilatory support on pressors with minimal sedation with no response to painful stimulus and negative corneal reflex. <Matthew Bonner - Last Filed: 10/15/17 16:07>
--- NOTE | 2017-10-15 07:53 | RAD ---
ONE VIEW CHEST: HISTORY: Ventilator-dependent patient. FINDINGS: AP view chest is obtained on 10/15/17. Comparison is made to previous exam from 10/14/17. AP view chest demonstrates EKG leads seen over the chest. Endotracheal tube is in good position. Pu lmonary vascular congestion is seen. Diffuse airspace opacities seen. There is loss of the left beatriz g hemidiaphragm interface compatible with a left-sided pleural effusion. There may be some component of left lower lobe atelectasis or pneumonia. Radiographic appearance of the chest is stable. IMPRESSION: Intubated patient with airspace opacities and left-sided pleural effusion. Findings are stable and u nchanged. POS: [facility]
--- NOTE | 2017-10-15 08:42 | PRG ---
DATE OF SERVICE: 10/15/2017 Thirty-five minutes critical care time. This patient remains on mechanical ventilation on numerous drips. His clinical course has steadily w orsened and I am shocked that he made it through the night. PHYSICAL EXAMINATION: VITAL SIGNS: His temperature is 99.1, pulse 109, blood pressure 143/40. He is currently on epinephr ine drip at 2 mcg per minute, Levophed drip at 35 mcg per minute, vasopressin drip at 0.2 units per m inute. Additionally, he is on bicarbonate drip, octreotide. He began bleeding out of his mouth agai n last night. He currently does not have an NG tube in. NEURO: Neurologically I cannot get him to withdraw to pain. It looks like he has a slight amount of respiratory effort when the ventilator rate is dropped and his pupils are about 8 mm and nonreactive to light. HEENT: Remarkable for profound conjunctival and periorbital edema. He has blood coming from his raegan th. NECK: His neck demonstrates no JVD. LUNGS: His breath sounds are diminished bilaterally. HEART: Heart rate is slightly tachycardic. No murmurs audible. ABDOMEN: Distended. EXTREMITIES: Edematous throughout. LABORATORY DATA: PH 7.01, pCO2 30, pO2 of 60 that is on assist control rate 20, tidal volume 430, PE EP 5, FiO2 100%. Sodium 150, potassium 4.7, chloride 102, CO2 less than 8, BUN 27, creatinine 4.5, g lucose 69, AST 3500, ALT 1658, albumin 2.7. White blood cell count 1.4, hemoglobin 10, hematocrit 30 , platelet count 40. Chest x-ray shows bilateral pulmonary edema. ASSESSMENT: Multiple organ failure after a massive gastrointestinal bleed. This patient has refract ory metabolic acidosis that has not improved with any form of treatment. His neurologic status is cl ose to brain if he is not already there. He has absolutely no hope of recovery. RECOMMENDATIONS: Unfortunately, he is too unstable to go down for a perfusion scan of his brain. I think that we should decrease therapy in terms of vasopressors and not give any more blood products. A DNR was put in yesterday. Apparently he has a somewhere in [place] and she is trying to get in to the [place]. I would be surprised if the patient was able to make it more than 24 hours wit h his current set of problems.
--- NOTE | 2017-10-15 09:49 | PRG ---
DATE OF SERVICE: 10/15/2017 SUBJECTIVE: Mr. Skelton was not expected to survive the night, but he remains critically ill in the U. He is essentially moribund with no expectation of neurological recovery. No urine output and rem aining on multiple pressors. His hemoglobin level has been stable since initial presentation and tra nsfusions and so it would appear that the active bleeding at least has stopped. However, his prognos is is grave due to multiple organ failure. OBJECTIVE: VITAL SIGNS: Temperature 99.1, pulse 108, blood pressure 113/39, 86% oxygen saturation on ventilator . GENERAL: Critically ill, sedated and intubated. HEART: Regular tachycardia. LUNGS: Bilateral crackles. ABDOMEN: He is mildly distended today. Bowel sounds are absent. No withdrawal to palpation. EXTREMITIES: 1+ bilateral lower extremity edema. LABORATORY STUDIES: Hemoglobin 10.3, WBC 1.4, platelets 40. INR declined to 1.6 after FFP transfusi on yesterday. ABG shows acidosis with pH 7.01, pO2 of 60.6, pCO2 of 30.4. Sodium is 150, potassium 4.7, carbon dioxide less than 8, chloride 102, BUN 27, creatinine up to 4.54, glucose 81, total bilir ubin up to 5.8, AST up to greater than 3500, ALT up to 1658, alkaline phosphatase 87. Ammonia is 657 , albumin 2.7. ASSESSMENT AND PLAN: 1. Gastric ulcer near the GE junction with actively bleeding visible vessel, status post successful hemostasis with epinephrine injection and electrocautery on EGD yesterday morning. 2. Acute blood loss anemia, stabilized after transfusion. 3. Hemorrhagic shock with multiple organ failure. Clinically, it would appear that his active bleed ing has resolved after endoscopic therapy. Unfortunately, due to the degree of his hemorrhagic shock and ongoing multiple organ failure, his prognosis is quite grim. Would continue the IV PPI for now. If he were to have evidence of acute overt rebleeding, please let us know, but on the other hand, cornell alonso I am not sure this would make much difference in his prognosis. 4. Elevated liver function tests, secondary to shock liver. 5. Esophageal varices. These were found incidentally on upper endoscopy yesterday. They were not b leeding and are not considered to be the source of his bleeding. I would continue the octreotide. It appears the patient likely had undiagnosed cirrhosis. Continue ceftriaxone secondary to gastrointest inal bleeding in a patient with cirrhosis. Please call back if needed.
[2017-10-15] MEDS: cefTRIAXone\\ROCEPHIN 2 GM in Sodium Chloride 0.9% 100 ML IVPB SCH (11:32)
[2017-10-15] MEDS: Vasopressin 40 UNIT, Admixture Fee 1 EACH in Sodium Chloride 0.9% 100 ML IV PRN (11:33)
[2017-10-15] MEDS: Levothyroxine 100 MCG SDV IVP SCH (13:28)
[2017-10-15 13:38] VITALS: BP 98/31
[2017-10-15 14:02] VITALS: BMI 32.0
--- NOTE | 2017-10-16 14:28 | DS-2 ---
ATTENDING: Dr. Matthew Bonner RESIDENT: Naseem Page D.O. DATE OF ADMISSION: 10/14/2017 DATE OF : 10/15/2017 TIME OF : 1440. CAUSE OF : 1. Multisystem organ failure. 2. Hemorrhagic shock secondary to gastrointestinal bleed. SECONDARY DIAGNOSES: 1. Liver failure. 2. Hepatic failure. 3. Non-ST elevation myocardial infarction. HOSPITAL COURSE: The patient presented to [facility] brought in by his friends who reported he had been throwing up blood. The patient was unconscious with a GCS of 3 at that time soon after his friends left. During hospitalization in [place] the patient had asystole twice with ROS twice. The patient was transferred to [facility]. While in the emergency room, the patient was found to have profuse bleeding with a hemoglobin 7.5, therefore Dr. Mclean and Dr. Sahu were consulted. Additionally , the patient also had poor perfusion with blood pressures in the 70s/40s. Dr. Mclean performed an emergent EGD in the emergency room and found what appeared to be an arterial bleed at the GE junction. Bleeding ulcer was fixed at this time. Patient additionally had esophageal varices that did not appear to be a bleeding. During hospitalization the patient received 13 units of packed red blood cells, 3 units of plasma, 9 units of fresh frozen plasma, two 6 packs of platelets and 4 units of cryoprecipitate. The patient was started on Levophed and vasopressin which were maxed out in order to maintain a map of 65. When transferred to the ICU, the patient continued to lose blood pressure; therefore he was started on epinephrine drip. Over the next day, we attempted to contact the patient's family. Eventually we were able to talk to an uncle who came up from [place]. It was discovered that his lives in [place]. After talking with her through a card mounter, the grave situation was explained. She asked that she have the opportunity to come up, which would be approximately 14 hours from time of first discussion. Attempts were made to contact the consulate in [place] by providing a letter of medical urgency for to be at patient's bedside. Regarding the patient's multiorgan failure, the patient had a GCS of 3 the entire hospitalization with no corneal reflex or gag reflex. Pertinent labs include white count of 1.4 on day of . Additionally, H&H of 10.3/30.3, and platelets of 40. Sodium was 150, potassium was 4.7, chloride was 102, bicarbonate was less than 8, BUN was 27, creatinine was 4.54, glucose was 69. The patient had difficulty maintaining glucose levels and was on D10 water. Additionally, ABGs were always acidotic with on final day of life pH of 7.01, pCO2 of 30.4 and pO2 of 60.6, AST was greater than 3500 and ALT was 1658. The patient on Sunday afternoon and was pronounced at 1440. MTDD
== END 2017-10-15 18:01 | disposition expired | DRG 380 ==
LOC: ERS 01:57 → CCU 02:40
PROVIDERS: ADMIT Family Medicine; ATTEND Family Medicine
PROC: 0W3P8ZZ Control Bleeding in Gastrointestinal Tract, Via Natural or Artificial Opening Endoscopic (ICD-10-PCS; principal; 2017-10-14)
PROC: 30233K1 Transfusion of Nonautologous Frozen Plasma into Peripheral Vein, Percutaneous Approach (ICD-10-PCS; 2017-10-14)
PROC: 30233N1 Transfusion of Nonautologous Red Blood Cells into Peripheral Vein, Percutaneous Approach (ICD-10-PCS; 2017-10-14)
PROC: 30233R1 Transfusion of Nonautologous Platelets into Peripheral Vein, Percutaneous Approach (ICD-10-PCS; 2017-10-14)
PROC: 30233M1 Transfusion of Nonautologous Plasma Cryoprecipitate into Peripheral Vein, Percutaneous Approach (ICD-10-PCS; 2017-10-14)
PROC: 3E053XZ Introduction of Vasopressor into Peripheral Artery, Percutaneous Approach (ICD-10-PCS; 2017-10-14)
PROC: 04HL33Z Insertion of Infusion Device into Left Femoral Artery, Percutaneous Approach (ICD-10-PCS; 2017-10-14)
PROC: 5A1935Z Respiratory Ventilation, Less than 24 Consecutive Hours (ICD-10-PCS; 2017-10-14)
PROC: 0BH17EZ Insertion of Endotracheal Airway into Trachea, Via Natural or Artificial Opening (ICD-10-PCS; 2017-10-14)
DX: K22.11 Ulcer of esophagus with bleeding (principal); I21.4 Non-ST elevation (NSTEMI) myocardial infarction; K72.00 Acute and subacute hepatic failure without coma; J96.01 Acute respiratory failure with hypoxia; I85.00 Esophageal varices without bleeding; E87.0 Hyperosmolality and hypernatremia; E87.2 Acidosis; D68.9 Coagulation defect, unspecified; N17.9 Acute kidney failure, unspecified; D62 Acute posthemorrhagic anemia; K72.90 Hepatic failure, unspecified without coma; R57.8 Other shock; R40.2432 Glasgow coma scale score 3-8, at arrival to emergency department; E16.2 Hypoglycemia, unspecified; E88.09 Other disorders of plasma-protein metabolism, not elsewhere classified; Z66 Do not resuscitate; K70.30 Alcoholic cirrhosis of liver without ascites; F10.10 Alcohol abuse, uncomplicated
CPT/HCPCS: 36415; 36416; 71045; 80053; 81003; 81015; 82140; 82805; 85025; 85060; 86850; 86900; 86901; 93005; 94002; 94003; 94760; A4216; C9113; C9132; J0171; J0696; J1720; J2354; J3010; J3430; J7050; J7070; P9012; P9016; P9035; P9047; P9048; P9059